=== PATIENT | male | born 1950 | race Caucasian/White ===

== ENCOUNTER → 2023-07-13 | Outpatient (CLI) | payer OTHER | END | disposition home or self-care (01) | LOC: OIH 08:39 | PROVIDERS: ATTEND Internal Medicine Cardiovascular Disease | DX: Z13.6 Encounter for screening for cardiovascular disorders (principal) | CPT/HCPCS: 75571 ==

== ENCOUNTER → 2025-01-25 | Outpatient (CLI) | payer OTHER ==
[~2025-01-25] MED LIST: IOHEXOL-350 75 ML VIAL IV ONE
--- NOTE | 2025-01-26 17:35 | HMCIMG ---
EXAMINATION: CT SCAN OF THE ABDOMEN AND PELVIS WITH CONTRAST CLINICAL HISTORY: Intra-abdominal and pelvic swelling, mass and lump. COMPARISON: None provided. TECHNIQUE: Thin collimated axial CT images of the abdomen and pelvis were obtained after IV contrast administration. Sagittal and coronal reconstructed images were also submitted. The total dose length product has been recorded in the electronic medical record. FINDINGS: The included chest is normal. Liver is normal in caliber with uniform normal density. Normal kidneys. No hydronephrosis. Gallbladder, spleen, pancreas, and both adrenal glands are normal in caliber. There are colonic diverticula. Rest of the included gastrointestinal tract is normal without any obstruction, ileus, or bowel wall thickening. There are fat-containing umbilical and bilateral inguinal hernias. No bowel containing hernia. The urinary bladder is optimally distended with normal wall thickening. No intravesical mass. The prostate is enlarged in caliber. Both the seminal vesicles are normal in caliber. There is no ascites. No lymphadenopathy. There are atheromatous wall calcifications of the aorta and the iliac arteries. Otherwise, the aorta and its branches are normal in caliber without any stenosis or aneurysm. There are multilevel moderate degenerative changes of the spine. There is anterior listhesis of L5 in relation to S1. IMPRESSION: No bowel obstruction or inflammation. Colonic diverticula. Normal kidneys. No hydronephrosis. Prostatomegaly. Fat-containing umbilical and bilateral inguinal hernias. No bowel containing hernia. /[place]
== END | disposition home or self-care (01) ==
LOC: RAH 09:56
PROVIDERS: ATTEND Physician Assistant Medical
DX: N40.0 Benign prostatic hyperplasia without lower urinary tract symptoms (principal); K40.20 Bilateral inguinal hernia, without obstruction or gangrene, not specified as recurrent; K57.30 Diverticulosis of large intestine without perforation or abscess without bleeding; I70.0 Atherosclerosis of aorta; M43.17 Spondylolisthesis, lumbosacral region; M47.817 Spondylosis without myelopathy or radiculopathy, lumbosacral region; R19.09 Other intra-abdominal and pelvic swelling, mass and lump
CPT/HCPCS: 74177; Q9967